=== PATIENT | female | born 1995 | race Hispanic/Latino ===

== ENCOUNTER 2016-12-12 14:44 | Day surgery (SDC) | payer OTHER ==
[2016-12-12 16:52] LABS: ALT (SGPT) 14 U/L (8-55); AST (SGOT) 14 U/L (5-34); Alkaline Phosphatase 83 U/L (40-150); Anion Gap 12 mmol/L (10-20); BUN (Urea Nitrogen) 6 mg/dL (7.0-18.7); Bilirubin, Total 0.3 mg/dL (0.2-1.2); Calc. Creatinine Clearance 0 mL/min (70-130); Calcium 8.7 mg/dL (7.8-10.44); Carbon Dioxide 23 mmol/L (22-29); Chloride 107 mmol/L (98-107); Estimated GFR-MDRD Greater than 90; Protein, Total 6.2 g/dL (6.0-8.3)
[2016-12-12 17:08] LABS: Bilirubin Negative (Negative); Blood, Urine Negative (Negative); Glucose, Urine (Dipstick) Negative (Negative); Ketone, Urine 15 mg/dL (Negative); Nitrite Negative (Negative); Protein, Urine (Dipstick) Negative (Neg-Trace)
[2016-12-12 17:11] LABS: Bacteria/HPF 1+ HPF (None Seen); Hyaline Casts/LPF 0-3 HYALINE CAST LPF (0-3 Hyaline); WBC/HPF 0-3 HPF (0-3)
--- NOTE | 2016-12-12 18:23 | PRG ---
DATE OF ENCOUNTER: 12/12/2016 PRIMARY RECYCLE DRIVER: Dr. Shannon Carlson. CHIEF COMPLAINT: Abdominal pain. HISTORY OF PRESENT ILLNESS: The patient is a 21-year-old G4, P3 female with an intrauterine pregnan cy at 23 weeks who presented to Labor and Delivery with right-sided abdominal pain that began after having dinner, which included steak. She reports that the pain lasted for about 3 hours and has sin ce resolved. Patient denies any significant pain at this time. She has had some nausea, but says t hat resolved after she threw up once. The patient denies any vaginal bleeding, any leakage of fluid . She denies any recent illness, fever, fall, headache, chest pain, shortness of breath, diarrhea, or constipation. She denies any previous history of similar symptoms. Patient has a gallbladder st ill in place. PAST MEDICAL HISTORY: Negative. PAST SURGICAL HISTORY: Negative. OBSTETRIC HISTORY: She has had 3 term vaginal deliveries. SOCIAL HISTORY: Denies drug, alcohol, or tobacco use. OB LABS: Unavailable at this time. REVIEW OF SYSTEMS: Per HPI. PHYSICAL EXAMINATION: VITAL SIGNS: Blood pressure 106/51, heart rate of 72, respiratory rate of 22. Temperature 99.3. GENERAL: She appears to be in no acute distress. She is alert and oriented, and cooperative and pl easant to interact with. HEENT: Normocephalic, atraumatic. LUNGS: Clear to auscultation bilaterally. HEART: Regular rate and rhythm. ABDOMEN: Soft and gravid. She has some minimal tenderness in the right mid quadrant, but no reboun d, no guarding. No suprapubic tenderness. No CVA tenderness. EXTREMITIES: Nontender, nonedematous. HEART TRACING: heart tones are dopplered in the 130s. CMP shows LFTs and alkaline phosphatase within normal limits at 14, 14 and 83. Creatinine 0.6, lipa se of 12. Urine is negative for protein. She has small ketones, small leukocyte esterase, 4-6 squa mous cells, 4-6 red old blood cells, 1+ bacteria. ASSESSMENT AND PLAN: The patient is a 21-year-old female G4, P3 with an intrauterine at 2 3 weeks who had onset of right mid abdominal pain after eating dinner and nausea and has since had r esolution of her symptoms spontaneously, was unable to reproduce the pain in significant away on phy sical exam. Her labs are all within normal limits and does not show any evidence of any hepatic dis order. Patient has been given reassurance and has been asked to keep diarrhea symptoms should they return. She has an appointment with her primary OB in the near future, which she has been asked to keep.
== END 2016-12-12 17:25 | disposition home or self-care (01) ==
LOC: L&D/OP 14:44
PROVIDERS: ATTEND Student in an Organized Health Care Education/Training Program
DX: O99.89 Other specified diseases and conditions complicating pregnancy, childbirth and the puerperium (principal); R10.9 Unspecified abdominal pain; Z3A.23 23 weeks gestation of pregnancy
CPT/HCPCS: 80053; 81003; 81015

== ENCOUNTER 2017-03-16 17:00 | Inpatient (IN) | payer OTHER ==
[2017-03-16 17:45] VITALS: BMI 36.9
[2017-03-16] MEDS ORDERED: Lactated Ringer's 1,000 ML IV SCH ×3 (18:00→23:30)
[2017-03-16] MEDS ORDERED: Acetaminophen 1,000 MG in Premix Bag 1 BAG IVPB SCH (18:00)
[2017-03-16] MEDS ORDERED: Sodium Chloride 0.9% 10 ML ONE (21:54)
[2017-03-16] MEDS ORDERED: Ondansetron HCl/PF 4 MG/2 ML Vial IVP PRN (23:25)
[2017-03-16] MEDS ORDERED: Ibuprofen 800 MG TAB PO PRN (23:25)
[2017-03-16] MEDS ORDERED: Lidocaine 1% (PF) 30 ML VIAL SC PRN (23:25)
[2017-03-16] MEDS ORDERED: LR / Pitocin 40 units/1000 ml 1,000 ML IV PRN (23:25)
[2017-03-16] MEDS ORDERED: Acetaminophen/Codeine 30-300mg Tablet PO PRN ×2 (23:25)
[2017-03-16 23:52] LABS: Hemoglobin 10.4 g/dL (12.0-16.0); Mean Corpuscular HGB CONC 31.2 g/dL (32.0-36.0); Mean Corpuscular Hemoglobin 23.3 pg (27.0-31.0); Mean Corpuscular Volume 74.8 fl (81.0-99.0); Mean Platelet Volume 11.6 fL (7.4-10.4); Platelet Count 220 thou/uL (130-400); RBC Distribution Width 16.1 % (11.5-14.5); Red Blood Cell (RBC) Count 4.46 mill/uL (4.20-5.40); White Blood Cell (WBC) Count 8.3 thou/uL (4.8-10.8)
[2017-03-17] MEDS ORDERED: Fentanyl 4 mcg/Marc 0.1% Cadd 100 ML ONE
[2017-03-17 00:26] LABS: Syphilis Antibody Nonreactive (Nonreactive); Syphilis Antibody Index 0.04 S/CO (<1.00 Non-Reactive)
[2017-03-17 00:27] LABS: HBSAg Index 0.78 S/CO (0-0.99); Hep B Surf Ag Non-Reactive S/CO (NonReactive)
[2017-03-17] MEDS ORDERED: diphenhydrAMINE 50 MG/ML VIAL IVP PRN (00:27)
[2017-03-17] MEDS ORDERED: Eucerin (Mineral Oil/Petrolatum,White) 30 gm Jar TOP PRN (00:27)
[2017-03-17] MEDS ORDERED: Acetaminophen 325 MG TAB PO PRN ×2 (00:27→01:26)
[2017-03-17] MEDS ORDERED: Promethazine HCl 25 MG/ML VIAL IM PRN (00:27)
[2017-03-17] MEDS ORDERED: Naloxone HCl 0.4 mg/ml Vial IVP PRN ×2 (00:27)
[2017-03-17] MEDS ORDERED: Lactated Ringer's 500 ML IV PRN (00:27)
[2017-03-17] MEDS ORDERED: ePHEDrine/0.9% NaCl/PF SYRINGE 50 mg/10 ml SLOW IVP PRN (00:27)
[2017-03-17] MEDS ORDERED: Ondansetron HCl/PF 4 MG/2 ML Vial IVP PRN ×2 (00:27→04:27)
[2017-03-17] MEDS ORDERED: Fentanyl 4mcg/Marcaine 0.1% Cassette 100 ML EPIDURAL SCH (00:30)
[2017-03-17] MEDS ORDERED: Communication Order-Pharmacy FS SCH (00:30)
[2017-03-17] MEDS ORDERED: Gentamicin 80 MG/2 ML VIAL IVPB SCH (01:30)
[2017-03-17] MEDS ORDERED: Gentamicin Sulfate 330 MG in Sodium Chloride 0.9% 100 ML IVPB SCH (02:00)
[2017-03-17 02:23] LABS: Actual Bicarbonate (HCO3a) 20.9 mEq/L (22-26); Base Excess (BEa) -4.9 mEq/L (0 (+/-) 2.5)
--- NOTE | 2017-03-17 02:29 | PDOC.OPDEL ---
OB Operative/Delivery Note Delivery Dr/Surgeon: Light Pre-Delivery Diagnosis: active labor, other ( tachycardia with late decelerations) Procedure/Post Delivery Dx: spontaneous vaginal delivery Weeks gestation: 37 Anesthesia: epidural - Findings A Sex: male Weight: 7 lb 6 oz - 1 min: 8 - 5 min: 9 - Additional Findings/Plan Placenta delivered: spontaneous Repaired Obstetrical Laceration: none Estimated blood loss: 200EBL Compilations/Other Findings: Chorioamnionitis. tachycardia with late decelerations Post delivery plan: routine recovery
[2017-03-17] MEDS ORDERED: Ampicillin 2 GM in Sodium Chloride 0.9% 100 ML IVPB SCH (03:00)
[2017-03-17] MEDS ORDERED: Benzocaine/Menthol 20-0.5% 60 ML CAN TOP PRN (04:27)
[2017-03-17] MEDS ORDERED: Misoprostol 200 MCG TAB VAG PRN (04:27)
[2017-03-17] MEDS ORDERED: Bisacodyl 10 MG SUPP PR PRN (04:27)
[2017-03-17] MEDS ORDERED: Milk Of Magnesia 30 ML UDCUP PO PRN (04:27)
[2017-03-17] MEDS ORDERED: Adacel (T-DAP) 0.5 ML VIAL IM ONE (04:27)
[2017-03-17] MEDS ORDERED: LR / Pitocin 40 units/1000 ml 1,000 ML IV SCH (04:27)
[2017-03-17] MEDS ORDERED: HYDROcodone/Acetaminophen 5/325 mg Tablet PO PRN (04:27)
[2017-03-17] MEDS ORDERED: Methylergonovine 0.2 MG/ML VIAL IM PRN (04:27)
[2017-03-17] MEDS: Ibuprofen 800 MG TAB PO SCH ×3 (04:54→21:49)
[2017-03-17] MEDS ORDERED: Clindamycin/D5W 900 MG in Premix Bag 1 BAG IVPB SCH (06:00)
[2017-03-17] MEDS ORDERED: Lidocaine 2% PF 5 ML VIAL ONE (11:11)
[2017-03-17] MEDS: Ferrous Sulfate 325 MG TAB PO SCH ×2 (11:23→18:02)
[2017-03-17] MEDS: Prenatal Vitamin 1 TAB PO SCH (11:23)
[2017-03-17] MEDS: Docusate Calcium (SURFAK) 240 MG CAP PO SCH ×2 (11:23→21:49)
[2017-03-17] MEDS: HYDROcodone/Acetaminophen 5/325 mg Tablet PO PRN (19:02)
[2017-03-18 05:40] LABS: Hemoglobin 9.5 g/dL (12.0-16.0); Mean Corpuscular HGB CONC 31.1 g/dL (32.0-36.0); Mean Corpuscular Hemoglobin 23.7 pg (27.0-31.0); Mean Corpuscular Volume 76.1 fl (81.0-99.0); Mean Platelet Volume 11.3 fL (7.4-10.4); Platelet Count 209 thou/uL (130-400); RBC Distribution Width 16.2 % (11.5-14.5); White Blood Cell (WBC) Count 9.4 thou/uL (4.8-10.8)
[2017-03-18] MEDS: Ibuprofen 800 MG TAB PO SCH ×3 (06:32→21:24)
--- NOTE | 2017-03-18 08:54 | PDOC.EVN ---
Event Note - Event Note Event Note: S: Pt doing well, voiding, nl lochia, good pain control. Breast and bottle feeding. O: Vital Signs (24 hours) Temp Pulse Resp BP 03/18/17 08:41 97.8 F 72 18 112/54 L 03/17/17 23:50 98.3 F 68 18 108/56 L 03/17/17 19:55 98.3 F 69 20 119/57 L 03/17/17 17:00 99.0 F 82 18 99/51 L 03/17/17 16:00 98.4 F 80 18 03/17/17 11:53 98.4 F 80 18 110/56 L 03/17/17 11:20 98.4 F 80 18 Laboratory Last Values WBC 9.4 thou/uL (4.8-10.8) 03/18/17 05:08 RBC 4.00 mill/uL (4.20-5.40) L 03/18/17 05:08 Hgb 9.5 g/dL (12.0-16.0) L 03/18/17 05:08 Hct 30.5 % (36.0-47.0) L 03/18/17 05:08 MCV 76.1 fl (81.0-99.0) L 03/18/17 05:08 MCH 23.7 pg (27.0-31.0) L 03/18/17 05:08 MCHC 31.1 g/dL (32.0-36.0) L 03/18/17 05:08 RDW 16.2 % (11.5-14.5) H 03/18/17 05:08 Plt Count 209 thou/uL (130-400) 03/18/17 05:08 MPV 11.3 fL (7.4-10.4) H 03/18/17 05:08 Bicarbonate Actual 20.9 mEq/L (22-26) L 03/17/17 02:20 ABG pCO2 41.5 mmHg (44.0-56.0) L 03/17/17 02:20 ABG Base Excess -4.9 mEq/L (0 (+/-) 2.5) L 03/17/17 02:20 Cord ABG pH 7.32 (7.28-7.32) 03/17/17 02:20 Syphilis IgG/IgM Ab Nonreactive (Nonreactive) 03/16/17 23:46 Hep Bs Antigen Non-Reactive S/CO (NonReactive) 03/16/17 23:46 Gen. NAD Resp. unlabored . fundus firm below U. A/P: PPD #1 s/p c/b chorio, doing well. Melisa baird.
[2017-03-18] MEDS: Docusate Calcium (SURFAK) 240 MG CAP PO SCH ×2 (09:30→21:24)
[2017-03-18] MEDS: Prenatal Vitamin 1 TAB PO SCH (09:30)
[2017-03-18] MEDS: Ferrous Sulfate 325 MG TAB PO SCH ×2 (09:30→17:22)
[2017-03-18] MEDS: HYDROcodone/Acetaminophen 5/325 mg Tablet PO PRN (09:32)
--- NOTE | 2017-03-18 12:36 | PDOC.PP ---
Post Progress Note Post Day #: 1 Subjective: doing well but having pain in her stomach and had diarrhea twice yesterday. PO intake tolerated: yes Flatus: yes Ambulation: yes Vital Signs (12 hours) Temp Pulse Resp BP 03/18/17 08:41 97.8 F 72 18 112/54 L 03/18/17 08:20 97.8 F 72 18 Weight Weight 202 lb - Physical Examination General: NAD Cardiovascular: no m/r/g, RRR Respiratory: clear to auscultation bilaterally, non-labored breathing Abdominal: + bowel sounds (ABD tympanic to percussion in RUQ and LUQ.), lochia ( minmal,) Skin: no rash Perineum: non edematous Neurological: no gross focal deficits Psychiatric: A&Ox3 Result Diagrams: 03/18/17 05:08 Additional Labs: Post Labs Hep Bs Antigen Non-Reactive S/CO (NonReactive) 03/16/17 23:46 (1) (spontaneous vaginal delivery) Code(s): O80 - ENCOUNTER FOR FULL-TERM UNCOMPLICATED DELIVERY Status: Acute (2) Chorioamnionitis Code(s): O41.1290 - CHORIOAMNIONITIS, UNSP TRIMESTER, NOT APPLICABLE OR UNSP Status: Acute (3) heart rate deceleration, delivered, current hospitalization Code(s): O76 - ABNLT IN HEART RATE AND RHYTHM COMP LABOR AND DELIVERY Status: Acute - Assessment/Plan A: G4 now p4 s/p at 37w2d. NML exam with the exception of typmanic ABD. P: start smithiecon tablets, hold stool softener. Routine post care Plan for discharge home tomorrow.
[2017-03-18] MEDS: Simethicone Chewable 80 MG TAB PO PRN ×2 (13:21→21:23)
[2017-03-19] MEDS: Ibuprofen 800 MG TAB PO SCH ×2 (05:55→14:18)
--- NOTE | 2017-03-19 07:29 | PDOC.PP ---
Post Progress Note Post Day #: 2 PO intake tolerated: yes Flatus: yes Ambulation: yes Vital Signs (12 hours) Temp Pulse Resp BP 03/18/17 20:00 98.8 F 71 16 03/18/17 19:35 98.8 F 71 16 102/52 L Weight Weight 202 lb - Physical Examination General: NAD Cardiovascular: no m/r/g, RRR Respiratory: clear to auscultation bilaterally Abdominal: + bowel sounds, lochia Extremities: negative homans (B) Neurological: no gross focal deficits Psychiatric: A&Ox3, normal affect Result Diagrams: 03/18/17 05:08 Additional Labs: Post Labs Hep Bs Antigen Non-Reactive S/CO (NonReactive) 03/16/17 23:46 (1) (spontaneous vaginal delivery) Code(s): O80 - ENCOUNTER FOR FULL-TERM UNCOMPLICATED DELIVERY Status: Acute - Assessment/Plan ppd 2 dc
[2017-03-19] MEDS: HYDROcodone/Acetaminophen 5/325 mg Tablet PO PRN (08:27)
[2017-03-19] MEDS: Prenatal Vitamin 1 TAB PO SCH (08:28)
[2017-03-19] MEDS: Docusate Calcium (SURFAK) 240 MG CAP PO SCH (08:28)
[2017-03-19 10:04] VITALS: BP 89/53; TEMP 98.5
[2017-03-19] MEDS: Ferrous Sulfate 325 MG TAB PO SCH (11:46)
== END 2017-03-19 17:00 | disposition home or self-care (01) | DRG 775 ==
LOC: L&D/OP 17:00 → L&D 22:36 → 3SW 03-17 04:16
PROVIDERS: ADMIT Student in an Organized Health Care Education/Training Program; ATTEND Student in an Organized Health Care Education/Training Program
PROC: 10907ZC Drainage of Amniotic Fluid, Therapeutic from Products of Conception, Via Natural or Artificial Opening (ICD-10-PCS; 2017-03-16)
PROC: 10E0XZZ Delivery of Products of Conception, External Approach (ICD-10-PCS; principal; 2017-03-17)
DX: O41.1230 Chorioamnionitis, third trimester, not applicable or unspecified (principal); O76 Abnormality in fetal heart rate and rhythm complicating labor and delivery; Z3A.37 37 weeks gestation of pregnancy; Z37.0 Single live birth
CPT/HCPCS: 36415; 51702; 82805; 84112; 85027; 86780; 87340; 87804; 88307; 99285; A4216; J0131; J0290; J1580; J2001; J7050

== ENCOUNTER 2024-12-25 13:51 | Outpatient (CLI) | payer OTHER | END 2024-12-25 13:52 | disposition home or self-care (01) | LOC: ULT 13:51 | PROVIDERS: ATTEND Nurse Practitioner | DX: Z34.92 Encounter for supervision of normal pregnancy, unspecified, second trimester (principal); Z33.1 Pregnant state, incidental; Z3A.20 20 weeks gestation of pregnancy | CPT/HCPCS: 76805 ==